=== PATIENT | male | born 1975 | race Caucasian/White ===

== ENCOUNTER 2018-05-30 10:25 | Emergency (ER) | payer BC, MEDICAID ==
[2018-05-30 10:35] VITALS: BP 147/87
--- NOTE | 2018-05-30 11:18 | UC ---
Eye Complaint HPI - HPI Summary HPI Summary: started with redness L eye 3-4 days ago, getting worse over past 2 days, using warm moist cloth to open eye in am and wiping away grren/yellow thick drainage no diff vision - History of Current Complaint Chief Complaint: UCEye Stated Complaint: POSS PINK EYE Time Seen by Provider: 05/30/18 10:28 Hx Obtained From: Patient Onset/Duration: Gradual Onset Timing: Constant Severity Initially: Mild Pain Intensity: 0 Location of Injury: Conjunctiva Alleviating Factor(s): Nothing - tried OTC eye drops w/o relief Associated Signs And Symptoms: Positive: Drainage (Purulent). Negative: Photophobia, Vision Impairment Left, Fever, Swelling - Allergies/Home Medications Allergies/Adverse Reactions: Allergies Allergy/AdvReac Type Severity Reaction Status Date / Time No Known Allergies Allergy Verified 05/30/18 10:36 PMH/Surg Hx/FS Hx/Imm Hx Previously Healthy: Yes - Surgical History Surgical History: Yes Surgery Procedure, Year, and Place: cholecystectomy 2000 - Family History Known Family History: Positive: None Negative: Hypertension, Diabetes - Social History Occupation: Employed Full-time - farm Lives: With Family Alcohol Use: Rare Substance Use Type: None Smoking Status (MU): Never Smoked Tobacco Review of Systems All Other Systems Reviewed And Are Negative: Yes Constitutional: Positive: Negative Skin: Positive: Negative. Negative: Rash Eyes: Positive: Drainage, Eye Redness ENT: Positive: Negative Respiratory: Positive: Negative Cardiovascular: Positive: Negative Neurological: Positive: Negative. Negative: Headache Psychological: Positive: Negative Is Patient Immunocompromised?: No Physical Exam Triage Information Reviewed: Yes Appearance: Well-Appearing, No Pain Distress, Well-Nourished Vital Signs: Initial Vital Signs Temp 97 F 05/30/18 10:32 Pulse 78 05/30/18 10:32 Resp 16 05/30/18 10:32 BP 147/87 05/30/18 10:32 Pulse Ox 98 05/30/18 10:32 Vital Signs Reviewed: Yes Eyes: Positive: Conjunctiva Inflamed, Discharge - OS Neck exam: Normal Respiratory Exam: Normal Respiratory: Positive: Lungs clear Cardiovascular Exam: Normal Cardiovascular: Positive: RRR Neurological Exam: Normal Psychological Exam: Normal Skin Exam: Normal Eye Complaint Course/Dx - Differential Dx/Diagnosis Differential Diagnosis/HQI/PQRI: Conjunctivitis, Corneal Abrasion, Foreign Body Provider Diagnosis: Conjunctivitis Discharge - Sign-Out/Discharge Documenting (check all that apply): Patient Departure All imaging exams completed and their final reports reviewed: No Studies - Discharge Plan Condition: Good Disposition: HOME Prescriptions: Ofloxacin 0.3% (Eye Drop) [Ocuflox OPTH 0.3% (Eye Drop)] 2 drop LEFT EYE .SEE DIRECTIONS #1 btl Ofloxacin 0.3% (Eye Drop) [Ocuflox OPTH 0.3% (Eye Drop)] 2 drop LEFT EYE Q4H #1 btl Patient Education Materials: Conjunctivitis (ED) Referrals: No Primary Care Phys,NOPCP [Primary Care Provider] - Additional Instructions: use good hand washing after touching eyes Use eye drops as prescribed recheck here if no better 2 days - Billing Disposition and Condition Condition: GOOD Disposition: Home - Attestation Statements Provider Attestation: I was available for consult. This patient was seen by the [facility]. The patient was not presented to , seen by or examined by me Monisha Patel MD
== END 2018-05-30 11:20 | disposition home or self-care (01) ==
LOC: UCEAST 10:25
DX: H10.9 Unspecified conjunctivitis (principal)
CPT/HCPCS: 99202; G0463

== ENCOUNTER 2018-11-01 12:40 | Emergency (ER) | payer BC, MEDICAID ==
[2018-11-01 12:49] VITALS: BP 122/72
--- NOTE | 2018-11-01 13:49 | UC ---
Knee Pain HPI - HPI Summary HPI Summary: 43 year old male with H/O R meniscal tear s/o menisectomy several years ago presents with R knee pain. Since surgery, ~ 3 years ago, patient noted intermittent bouts of increased pain with swelling, usually outer knee. 2 days ago began to have pain, increased to where now difficulty with walking. Swelling increased yesterday, has improved today. no numbness/ tingling. no redness, fever. no recent injuries, however works with calfs/ cows, pushing animals. has not tried motrin/ alleve/ tylenol yet. 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 - Onset/Duration: Sudden Onset, Lasting Days, Still Present Severity Initially: Moderate Severity Currently: Moderate Pain Intensity: 8 Pain Scale Used: 0-10 Numeric Character: Sharp, Aching, Stiffness Aggravating Factor(s): Movement, Weight Bearing, Prolonged Standing, Stairs Alleviating Factor(s): Rest Associated Signs And Symptoms: Positive: Swelling - Allergies/Home Medications Allergies/Adverse Reactions: Allergies Allergy/AdvReac Type Severity Reaction Status Date / Time No Known Allergies Allergy Verified 11/01/18 12:49 PMH/Surg Hx/FS Hx/Imm Hx Previously Healthy: Yes - does not follow , dislike for Drs. - Surgical History Surgical History: Yes Surgery Procedure, Year, and Place: cholecystectomy 2000 - Family History Known Family History: Positive: None, Non-Contributory Negative: Hypertension, Diabetes - Social History Alcohol Use: Rare Substance Use Type: None Smoking Status (MU): Never Smoked Tobacco Review of Systems All Other Systems Reviewed And Are Negative: Yes Constitutional: Positive: Negative. Negative: Fever, Chills Musculoskeletal: Positive: Arthralgia, Decreased ROM, Myalgia. Negative: Edema Is Patient Immunocompromised?: No Physical Exam Triage Information Reviewed: Yes Appearance: Well-Appearing, No Pain Distress, Well-Nourished Vital Signs: Initial Vital Signs Temp 98 F 11/01/18 12:46 Pulse 87 11/01/18 12:46 Resp 17 11/01/18 12:46 BP 122/72 11/01/18 12:46 Pulse Ox 100 11/01/18 12:46 Vital Signs Reviewed: Yes Eyes: Positive: Conjunctiva Clear Musculoskeletal: Positive: Other: - + lateral mcmurrays, trace effusion, no wilda / bettina pain/ lax, neg ACL/ PCL testing, neg homans, no pain, TTP over ankle, foot , full DF/PF. SITLT. neg patellar grind. + TTP over LJL severe, mild MJL. neg IT pain, ROM 0-130 with pain at term endpoint. no posteriod fullness Neurological Exam: Normal Neurological: Positive: Alert, Muscle Tone Normal Psychological Exam: Normal Skin Exam: Normal Skin: Positive: Other - no erythema. Negative: Rashes Knee Pain Course/Dx - Course Course Of Treatment: radiograph: BONE DENSITY: Normal. BONES: There is no displaced fracture. JOINTS: There is no arthropathy. There is no suprapatellar joint effusion or lipohemarthrosis. ALIGNMENT: There is no dislocation. SOFT TISSUES: Unremarkable. OTHER FINDINGS: None. IMPRESSION: NO ACUTE OSSEOUS INJURY. IF SYMPTOMS PERSIST, RECOMMEND REPEAT IMAGING. Probably meniscal injury - Naproxen 250mg every 12 horus x 7 days- stop with stomach upset, black/ tarry stools - Elevate knee, ice 20 mins on 20 mins off as much as possible, rest - Follow up with orthopedics for further treatment including possible steroid injection, imaging, treatment - work note given - - Differential Dx/Diagnosis Differential Diagnosis/HQI/PQRI: Foreign Body, Sprain, Strain Provider Diagnosis: Meniscal injury Discharge - Sign-Out/Discharge Documenting (check all that apply): Patient Departure All imaging exams completed and their final reports reviewed: Yes - Discharge Plan Condition: Good Disposition: HOME Prescriptions: Naproxen [Naproxen 250 mg tab] 250 mg PO BID PRN #60 tablet PRN Reason: Pain Patient Education Materials: Meniscus Tear (ED) Forms: *Work Release Referrals: No Primary Care Phys,NOPCP [Primary Care Provider] - [facility] [Outside] Luis Manuel Garcia MD [Medical Doctor] - (within 1 week- may follow with Dr. Jimenez, Dr. Nelson or Dr Trejo if Jose not available. Mention being seen at Urgent care, call today/ tomorrow for appt. ) Additional Instructions: Probably meniscal injury - Naproxen 250mg every 12 horus x 7 days- stop with stomach upset, black/ tarry stools - Elevate knee, ice 20 mins on 20 mins off as much as possible, rest - Follow up with orthopedics for further treatment including possible steroid injection, imaging, treatment - work note given - Billing Disposition and Condition Condition: GOOD Disposition: Home - Attestation Statements Provider Attestation: Per institutional requirements, I have reviewed the chart, however, I was not consulted specifically or made aware of this patient by the midlevel provider. I did not personally evaluate, interact with , or disposition this patient.
== END 2018-11-01 13:55 | disposition home or self-care (01) ==
LOC: UCEAST 12:40
DX: S83.8X1A Sprain of other specified parts of right knee, initial encounter (principal); X58.XXXA Exposure to other specified factors, initial encounter; Y92.9 Unspecified place or not applicable
CPT/HCPCS: 99211; G0463

== ENCOUNTER 2020-04-06 11:41 | Observation (INO) ==
[2020-04-06] MEDS ORDERED: NS 0.9% 1000 ml BAG 1,000 ML IV ONE ×2 (12:19→14:05)
[2020-04-06 12:43] LABS: ABS Basophils 0.1 10^3/ul (0-0.2); ABS Eosinophils 0.7 10^3/ul (0-0.6); ABS Lymphocytes 1.8 10^3/ul (1.0-4.8); ABS Monocytes 0.4 10^3/ul (0-0.8); Eosinophil % 8.1 %; Hematocrit 41 % (42-52); Lymphocyte % 20.4 %; Mean Corpuscular HGB Conc 37 g/dL (31-36); Mean Corpuscular Hemoglobin 33 pg (27-31); Mean Corpuscular Volume 89 fL (80-94); Mean Platelet Volume 8.3 fL (7.4-10.4); Nucleated Red Blood Cells % 0.1; Platelet Count 249 10^3/uL (150-450); Red Blood Count 4.61 10^6 /uL (4.18-5.48); Red Cell Distribution Width 14 % (10-15)
[2020-04-06 13:38] LABS: TSH Ultra Thyroid Stim Horm 2.42 mcIU/mL (0.34-5.60)
[2020-04-06 13:43] LABS: Anion Gap 13 mmol/L (2-11); CO2 Carbon Dioxide 19 mmol/L (22-32); Chloride 86 mmol/L (101-111); EGFR African American 99.6 (>60); EGFR Non-African American 82.3 (>60)
[2020-04-06 13:45] LABS: Albumin 3.7 g/dL (3.2-5.2); Albumin/Globulin Ratio 1.1 (1-3); Alkaline Phosphatase 108 U/L (34-104); BUN/Creatinine Ratio 10.2 (8-20); Blood Urea Nitrogen 10 mg/dL (6-24); Calcium 9.1 mg/dL (8.6-10.3); Globulin 3.3 g/dL (2-4)
[2020-04-06 13:50] LABS: ALT 16 U/L (7-52)
[2020-04-06 13:52] LABS: Glucose 617 mg/dL (70-100); Sodium 118 mmol/L (135-145)
[2020-04-06] MEDS ORDERED: Iohexol 300 (CONTRAST) 10 ML SDV IV ONE (13:53)
[2020-04-06 15:14] LABS: Urine Appearance Clear; Urine Bilirubin Negative (Negative); Urine Blood Negative (Negative); Urine Color Straw; Urine Glucose 3+(>=500 mg/dL) (Negative); Urine Ketones Trace (Negative); Urine Nitrite Negative (Negative); Urine Protein Negative (Negative); Urine Specific Gravity 1.033 (1.010-1.030); Urine Urobilinogen Negative (Negative)
[2020-04-06] MEDS ORDERED: Al Hydrox/Mg Hydrox/Simet LIQ 30 ML UDC PO PRN (17:17)
[2020-04-06] MEDS ORDERED: Ondansetron 4 mg VIAL 2 MG/ML 2 ml VIAL IV PRN (17:17)
[2020-04-06 17:20] LABS: Glucose 304 mg/dL (70-100)
[2020-04-06 17:21] LABS: BUN/Creatinine Ratio 9.7 (8-20); Blood Urea Nitrogen 9 mg/dL (6-24); CO2 Carbon Dioxide 23 mmol/L (22-32); Calcium 8.6 mg/dL (8.6-10.3); EGFR African American 105.8 (>60); EGFR Non-African American 87.5 (>60)
[2020-04-06] MEDS ORDERED: Dextrose 50% Syringe 50 ml 25 GM/50 ML SYRINGE IV PUSH PRN ×2 (17:28→17:29)
[2020-04-06] MEDS ORDERED: Enoxaparin 40 MG/0.4 ML SYR SUBCUT SCH (18:00)
[2020-04-06 18:13] LABS: Potassium, Whole Blood 4.9 mmol/L (3.4-4.5)
[2020-04-06 20:01] LABS: Glucose 301 mg/dL (70-100)
[2020-04-06 20:02] LABS: CO2 Carbon Dioxide 27 mmol/L (22-32); Calcium 8.4 mg/dL (8.6-10.3); EGFR African American 127.8 (>60); EGFR Non-African American 105.6 (>60)
[2020-04-06 20:14] LABS: BUN/Creatinine Ratio 11.4 (8-20); Blood Urea Nitrogen 9 mg/dL (6-24)
[2020-04-06] MEDS ORDERED: Insulin GLARGINE 100 un/ml 10 ml VIAL SUBCUT SCH (21:00)
[2020-04-06 23:17] LABS: CO2 Carbon Dioxide 19 mmol/L (22-32); Calcium 8.5 mg/dL (8.6-10.3)
[2020-04-06 23:19] LABS: EGFR African American 112.8 (>60); EGFR Non-African American 93.2 (>60); Glucose 329 mg/dL (70-100)
[2020-04-06 23:32] LABS: BUN/Creatinine Ratio 10.2 (8-20); Blood Urea Nitrogen 9 mg/dL (6-24)
[2020-04-07 03:37] LABS: Potassium, Whole Blood 3.3 mmol/L (3.4-4.5)
[2020-04-07 03:41] LABS: ABS Basophils 0.1 10^3/ul (0-0.2); ABS Eosinophils 0.7 10^3/ul (0-0.6); ABS Lymphocytes 2.9 10^3/ul (1.0-4.8); ABS Monocytes 0.4 10^3/ul (0-0.8); ABS Neutrophils 4.7 10^3/ul (1.5-7.7); Eosinophil % 8.3 %; Hematocrit 36 % (42-52); Hemoglobin 13.7 g/dL (14.0-18.0); Lymphocyte % 33.1 %; Mean Corpuscular HGB Conc 39 g/dL (31-36); Mean Corpuscular Hemoglobin 33 pg (27-31); Mean Corpuscular Volume 87 fL (80-94); Mean Platelet Volume 8.2 fL (7.4-10.4); Nucleated Red Blood Cells % 0.1; Platelet Count 223 10^3/uL (150-450); Red Cell Distribution Width 14 % (10-15); White Blood Count 8.9 10^3/uL (3.5-10.8)
[2020-04-07 03:52] LABS: Anion Gap 9 mmol/L (2-11); CO2 Carbon Dioxide 21 mmol/L (22-32); Calcium 8.2 mg/dL (8.6-10.3); EGFR African American 137.8 (>60); EGFR Non-African American 113.9 (>60); Glucose 237 mg/dL (70-100); HDL Cholesterol 17.8 mg/dL
[2020-04-07 04:08] LABS: BUN/Creatinine Ratio 10.8 (8-20); Blood Urea Nitrogen 8 mg/dL (6-24); Cholesterol 749 mg/dL; Triglycerides 4653 mg/dL
[2020-04-07 04:30] LABS: LDL Cholesterol Direct 92 mg/dL
[2020-04-07 09:24] LABS: Amylase 21 U/L (29-103); Lipase 99 U/L (11.0-82.0); Magnesium 2.5 mg/dL (1.9-2.7)
[2020-04-07] MEDS ORDERED: Insulin GLARGINE 100 un/ml 10 ml VIAL SUBCUT ONE (11:01)
[2020-04-07 11:16] VITALS: BP 123/77
[2020-04-08] MEDS ORDERED: Insulin GLARGINE 100 un/ml 10 ml VIAL SUBCUT SCH (09:00)
== END 2020-04-07 17:15 | disposition home or self-care (01) ==
LOC: SSU 11:41 → ED 11:41 → SSU 18:57
PROVIDERS: ADMIT Pediatrics; ATTEND Pediatrics